=== PATIENT | male | born 1995 | race African-American/Black ===

== ENCOUNTER 2017-01-02 01:26 | Emergency (ER) | payer OTHER ==
[~2017-01-02] VITALS: Ht 188 cm; Wt 86.4 kg
[2017-01-02 01:29] VITALS: BP 157/82; PULSE 77; TEMP 98.3
[2017-01-02 06:44] LABS: Neisseria Gon by PCR Male NOT DETECTED
[2017-01-02 06:48] LABS: CHLAMYDIA/TRACH by PCR Male DETECTED
== END 2017-01-02 02:53 | disposition home or self-care (01) ==
LOC: COL.ER 01:26
PROVIDERS: Emergency Medicine
DX: Z20.2 Contact with and (suspected) exposure to infections with a predominantly sexual mode of transmission (principal)